=== PATIENT | female | born 1930 | race Caucasian/White ===

== ENCOUNTER 2019-04-01 14:31 | Emergency (ER) | payer MEDICARE ==
[~2019-04-01] VITALS: Ht 160 cm; Wt 60.0 kg
[2019-04-01] MEDS ORDERED: normal saline 1000ml 1,000 ML IV ONE (14:54)
[2019-04-01] MEDS ORDERED: LIDOcaine 1% w/EPI 1:200,000 injection 10mL vial IM ONE (14:55)
[2019-04-01] MEDS ORDERED: TETanus/Pertussis (Acell)/Diphther VAC/PF (Tdap-Adult) 0.5ml syringe IMVAC ONE (14:55)
[2019-04-01] MEDS ORDERED: LIDOcaine 1% W/epiNEPHrine 1:200,000 10ml vial IJ ONE (15:00)
[2019-04-01 15:27] LABS: PARTIAL THROMBOPLASTIN TIME 24 SECONDS (22-32)
[2019-04-01 15:28] LABS: BASOPHILS % (AUTO) 0.3 % (0-1); EOSINOPHILS # (AUTO) 0.1 X10'3 (0-0.9); EOSINOPHILS % (AUTO) 0.8 % (0-6); HEMATOCRIT 35.5 % (35.0-45.0); HEMOGLOBIN 12.1 g/dl (12.0-16.0); LYMPHOCYTES # (AUTO) 1.2 X10'3 (1.1-4.8); LYMPHOCYTES % (AUTO) 17.1 % (21-51); MEAN CORPUSCULAR HEMOGLOBIN 32.7 PG (27.0-31.0); MEAN CORPUSCULAR HGB CONC 34.1 g/dL (33.0-36.5); MEAN CORPUSCULAR VOLUME 95.8 FL (78-98); MEAN PLATELET VOLUME 8.2 FL (7.4-10.4); MONOCYTES # (AUTO) 0.9 X10'3 (0-0.9); MONOCYTES % (AUTO) 12.4 % (2-12); NEUTROPHILS % (AUTO) 69.4 % (42-75); PLATELET COUNT 210 X10'3 (140-440); RED CELL DISTRIBUTION WIDTH 15.5 % (11.5-14.5); WHITE BLOOD COUNT 7.2 X10'3 (4.5-11.0)
[2019-04-01 15:38] LABS: ALANINE AMINOTRANSFERASE 12 U/L (12-78); ALBUMIN 3.2 G/DL (3.4-5.0); ALKALINE PHOSPHATASE 69 IU/L (46-116); ANION GAP 10 (8-16); ASPARTATE AMINO TRANSFERASE 17 U/L (10-37); BILIRUBIN,TOTAL 0.4 MG/DL (0.1-1.0); BLOOD UREA NITROGEN 26 MG/DL (7-18); BUN/CREATININE RATIO 20.3 (6.6-38.0); CHLORIDE 102 MMOL/L (99-107); CREATININE 1.28 MG/DL (0.40-0.90); ETHANOL < 0.010 GM/DL (0.0-0.010); GLUCOSE 104 MG/DL (70-104); MAGNESIUM 1.4 MG/DL (1.5-2.4); SODIUM 140 MMOL/L (135-145); TOTAL CARBON DIOXIDE 28.2 MMOL/L (24-32); TOTAL PROTEIN 6.3 G/DL (6.4-8.2); eGFR 39 ML/MIN
[2019-04-01] MEDS ORDERED: potassium Cl 20 mEq SR tablet PO STA (16:41)
[2019-04-01] MEDS ORDERED: magnesium oxide 400mg tablet PO ONE (16:45)
--- NOTE | 2019-04-01 17:42 | NUR ---
PATIENT'S GRANDDAUGHTER RANDA'S PHONE NUMBER [phone]. PLEASE CALL IF SHE NEEDS A RIDE.
[2019-04-01 18:25] VITALS: BP 170/95
--- NOTE | 2019-04-01 18:42 | NUR ---
CONTACT: RANDA [phone] (GRANDDAUGHTER) NETZA: [phone] ([facility] [employer]) CALL FOR RIDE
[2019-04-01] MEDS ORDERED: cephalexin 500mg capsule PO ONE (18:50)
[2019-04-01] MEDS ORDERED: CEPH250T PO (18:50)
== END 2019-04-01 19:30 | disposition home or self-care (01) ==
LOC: ER 14:31
DX: S01.311A Laceration without foreign body of right ear, initial encounter (principal); E87.6 Hypokalemia; E83.42 Hypomagnesemia; R55 Syncope and collapse; R42 Dizziness and giddiness; I10 Essential (primary) hypertension; M19.90 Unspecified osteoarthritis, unspecified site; G89.29 Other chronic pain; Z90.49 Acquired absence of other specified parts of digestive tract; Z90.710 Acquired absence of both cervix and uterus; Z79.2 Long term (current) use of antibiotics; W18.39XA Other fall on same level, initial encounter; Y93.89 Activity, other specified; Y92.89 Other specified places as the place of occurrence of the external cause; Y99.8 Other external cause status
CPT/HCPCS: 12051; 36415; 70450; 71045; 80053; 80320; 83735; 84443; 84484; 85025; 85610; 85730; 90471; 90715; 93005; 96360; 96361; 99284; J7030

== ENCOUNTER 2019-04-04 15:26 | Emergency (ER) | payer MEDICARE ==
[~2019-04-04] VITALS: Ht 160 cm; Wt 55.0 kg
[~2019-04-04 15:26] MED LIST: CEPH250T PO
[2019-04-04 16:51] VITALS: BP 171/68
== END 2019-04-04 16:52 | disposition home or self-care (01) ==
LOC: ER 15:27
DX: S00.11XA Contusion of right eyelid and periocular area, initial encounter (principal); H93.8X1 Other specified disorders of right ear; H92.01 Otalgia, right ear; I10 Essential (primary) hypertension; M19.90 Unspecified osteoarthritis, unspecified site; G89.29 Other chronic pain; F10.10 Alcohol abuse, uncomplicated; Z90.49 Acquired absence of other specified parts of digestive tract; Z90.710 Acquired absence of both cervix and uterus; Z79.899 Other long term (current) drug therapy; W18.39XA Other fall on same level, initial encounter; Y93.89 Activity, other specified; Y92.89 Other specified places as the place of occurrence of the external cause; Y99.8 Other external cause status; Y90.9 Presence of alcohol in blood, level not specified
CPT/HCPCS: 99284